=== PATIENT | female | born 1970 | race Caucasian/White ===

== ENCOUNTER → 2018-10-06 | Outpatient (CLI) | payer OTHER ==
--- NOTE | 2018-10-08 09:52 | MM ---
Reason for exam: screening (asymptomatic). Last mammogram was performed 11 years and 1 month ago. History: Patient is nulliparous. Lumpectomy of the right breast, 2004. Physical Findings: A clinical breast exam by your physician is recommended on an annual basis and results should be correlated with mammographic findings. MG Screening Mammo w CAD Bilateral CC and MLO view(s) were taken. Prior study comparison: August 25, 2007, bilateral screening mammogram w/CAD. There are scattered fibroglandular densities. Focal asymmetry subareolar right breast. Additional view recommended. ASSESSMENT: Incomplete: need additional imaging evaluation, BI-RAD 0 RECOMMENDATION: Special view mammogram of the right breast. If lesion persists on supplemental views, image directed ultrasound is recommended. [facility] will attempt to contact patient to return for supplemental views and ultrasound if indicated.
== END ==
LOC: RADMAMWWP 15:13
PROVIDERS: ATTEND Family Medicine
DX: Z12.31 Encounter for screening mammogram for malignant neoplasm of breast (principal)
CPT/HCPCS: 77067

== ENCOUNTER → 2018-10-22 | Outpatient (CLI) | payer OTHER ==
--- NOTE | 2018-10-22 10:12 | MM ---
Reason for exam: additional evaluation requested from abnormal screening. Last mammogram was performed 1 month ago. History: Patient is nulliparous. Benign excisional biopsy of the right breast, 2004. Physical Findings: Nurse did not find any significant physical abnormalities on exam. MG 3D Work Up W/Cad RT Spot compression CC, spot compression MLO, and LM view(s) were taken of the right breast. Prior study comparison: October 06, 2018, bilateral MG screening mammo w CAD. August 25, 2007, bilateral screening mammogram w/CAD. There are scattered fibroglandular densities. These results were verbally communicated with the patient and result sheet given to the patient on 10/22/18. ASSESSMENT: Probably benign, BI-RAD 3 RECOMMENDATION: Follow-up diagnostic mammogram of the right breast in 6 months.
== END | disposition home or self-care (01) ==
LOC: RADMAMWWP 08:58
PROVIDERS: ATTEND Family Medicine
DX: R92.8 Other abnormal and inconclusive findings on diagnostic imaging of breast (principal)
CPT/HCPCS: 77061; 77065

== ENCOUNTER → 2019-04-22 | Outpatient (CLI) | payer OTHER ==
--- NOTE | 2019-04-22 11:25 | MM ---
Reason for exam: follow-up at short interval from prior study. Last mammogram was performed 6 months ago. History: Patient is nulliparous. Benign excisional biopsy of the right breast, 2004. Physical Findings: Nurse did not find any significant physical abnormalities on exam. MG 3D Diag Mammo W/Cad RT CC and MLO view(s) were taken of the right breast. Prior study comparison: October 22, 2018, right breast MG 3d work up w/cad RT. October 06, 2018, bilateral MG screening mammo w CAD. There is no discrete abnormality. These results were verbally communicated with the patient and result sheet given to the patient on 04/22/19. ASSESSMENT: Benign, BI-RAD 2 RECOMMENDATION: Return to routine screening mammogram schedule for both breasts. Back on schedule.
== END | disposition home or self-care (01) ==
LOC: RADMAMWWP 10:17
PROVIDERS: ATTEND Family Medicine
DX: R92.8 Other abnormal and inconclusive findings on diagnostic imaging of breast (principal)
CPT/HCPCS: 77061; 77065

== ENCOUNTER 2021-06-25 08:45 | Emergency (ER) | payer OTHER ==
[2021-06-25 08:50] VITALS: RESP 18; TEMP 97.6
[2021-06-25] MEDS ORDERED: KETOROLAC 15 MG/ML 1 ML VIAL IM STA (09:08)
[2021-06-25] MEDS ORDERED: ORPHENADRINE 30 MG/ML 2 ML VIAL IM STA (09:08)
--- NOTE | 2021-06-25 09:46 | XR ---
Lumbar spine HISTORY: Pain 3 views of the lumbar spine, no comparisons There is a levoscoliosis centered at L2-3. There is rotatory component. Lumbar vertebral bodies show preserved height and bone mineralization. Sclerosis is present in the posterior elements of the lower lumbar spine. There is multilevel spondylosis. Some loss of disc height present at L5-S1, L2-3. IMPRESSION: Degenerative disc disease, scoliosis, facet arthropathy
--- NOTE | 2021-06-25 09:52 | ED ---
General Adult HPI - General Chief complaint: Back Pain/Injury Stated complaint: Back Pain/Injury Time Seen by Provider: 06/25/21 08:51 Source: patient Mode of arrival: wheelchair Limitations: no limitations - History of Present Illness Initial comments: 50-year-old female presents to the emergency room for a chief complaint of left back pain. Patient states she has back pain from time to time and usually sees a chiropractor every 2 weeks. Patient states week ago she started to have left lower back pain. Denies injury but states she works at [employer] and is on her feet a lot. Patient states the pain in her low back radiates down her left leg. Last night it was radiating to her foot. Patient states it worsens with movement such as going from sitting to standing. Patient denies bladder or bowel changes, saddle anesthesia, weakness of the legs, or fevers.Patient has no other complaints at this time including shortness of breath, chest pain, abdominal pain, nausea or vomiting, headache, or visual changes. - Related Data Home Medications Medication Instructions Recorded Confirmed Cyanocobalamin (Vitamin B-12) 5,000 mcg PO DAILY 06/25/21 06/25/21 [Vitamin B12] Loratadine [Claritin] 10 mg PO DAILY 06/25/21 06/25/21 Multivitamins, Thera [Multivitamin 1 tab PO DAILY 06/25/21 06/25/21 (formulary)] Vitamin D3 50,000iu 50,000 units PO MO 06/25/21 06/25/21 Previous Rx's Medication Instructions Recorded Cyclobenzaprine [Flexeril] 10 mg PO TID #14 tab 06/25/21 Lidocaine 5% Patch [Lidoderm 5% 1 patch TOPICAL DAILY PRN 20 Days 06/25/21 Patch] #20 patch predniSONE 50 mg PO DAILY #5 tablet 06/25/21 Allergies Allergy/AdvReac Type Severity Reaction Status Date / Time No Known Allergies Allergy Verified 06/25/21 10:03 Review of Systems ROS Statement: Those systems with pertinent positive or pertinent negative responses have been documented in the HPI. ROS Other: All systems not noted in ROS Statement are negative. Past Medical History Past Medical History: No Reported History History of Any Multi-Drug Resistant Organisms: None Reported Past Surgical History: Bariatric Surgery Additional Past Surgical History / Comment(s): rt breast lumpectomy, lip reconstructive Past Psychological History: No Psychological Hx Reported Smoking Status: Never smoker Past Alcohol Use History: None Reported Past Drug Use History: None Reported General Exam Limitations: no limitations General appearance: alert, in no apparent distress Head exam: Present: atraumatic Eye exam: Present: normal appearance, PERRL, EOMI. Absent: scleral icterus, conjunctival injection ENT exam: Present: normal exam, mucous membranes moist Neck exam: Present: normal inspection, full ROM. Absent: tenderness Respiratory exam: Present: normal lung sounds bilaterally. Absent: respiratory distress, wheezes Cardiovascular Exam: Present: regular rate, normal rhythm, normal heart sounds Extremities exam: Present: normal capillary refill (Capillary refill less than 2 seconds, DP pulse 2+ left lower extremity), other (Strength 5 out of 5 bilateral lower extremities) Back exam: Present: other (Left-sided lower paraspinal tenderness). Absent: CVA tenderness (R), CVA tenderness (L), vertebral tenderness Course Vital Signs 06/25/21 08:47 Temperature 97.6 F Pulse Rate 72 Respiratory 18 Rate Blood Pressure 141/65 O2 Sat by Pulse 98 Oximetry Medical Decision Making - Medical Decision Making Vitals are stable. HPI and physical exam as documented. Signs. X-ray shows degenerative disc disease, scoliosis, and facet arthropathy. Patient would likely benefit from an MRI and will be referred to orthopedics. In the meantime we did give her Toradol and Norflex which did improve her pain. We will send her home with Tylenol 3 to take as needed for breakthrough pain. Patient will otherwise take muscle relaxers steroids and use lidocaine patches. She will return here for any worsening symptoms. Disposition Clinical Impression: Mechanical back pain, Lumbar radiculopathy Disposition: HOME SELF-CARE Condition: Good Instructions (If sedation given, give patient instructions): Acute Low Back Pain (ED) Additional Instructions: Please take medications as directed. If pain is severe take Tylenol [address] operate machinery while taking this. Please follow-up with primary care and orthopedics. You would likely benefit from an MRI. Return to the emergency room for any worsening symptoms such as severely worsening pain, bladder or bowel changes, saddle anesthesia, weakness of the legs, or fevers. Prescriptions: Cyclobenzaprine [Flexeril] 10 mg PO TID #14 tab Lidocaine 5% Patch [Lidoderm 5% Patch] 1 patch TOPICAL DAILY PRN 20 Days #20 patch PRN Reason: Pain predniSONE 50 mg PO DAILY #5 tablet Is patient prescribed a controlled substance at d/c from ED?: No Referrals: Diane Roman MD [Primary Care Provider] - 1-2 days Job Boston MD [STAFF PHYSICIAN] - 1-2 days Time of Disposition: 10:11
[2021-06-25] MEDS ORDERED: ACET/COD 300 MG/30 MG STARTER PACK 6 TAB BTL PO STA (10:12)
[2021-06-25 10:51] VITALS: BP 149/98; PULSE 64
== END 2021-06-25 10:48 | disposition home or self-care (01) ==
LOC: EC 08:45
DX: M51.16 Intervertebral disc disorders with radiculopathy, lumbar region (principal)
CPT/HCPCS: 72100; 99283; 96372; J2360; J1885

== ENCOUNTER 2023-09-04 13:15 | Emergency (ER) | payer OTHER ==
[2023-09-04 13:27] VITALS: TEMP 98
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
[2023-09-04 15:03] VITALS: BP 137/88; PULSE 68; RESP 16
== END 2023-09-04 14:47 | disposition home or self-care (01) ==
LOC: EC 13:15
DX: M25.531 Pain in right wrist (principal); V89.2XXA Person injured in unspecified motor-vehicle accident, traffic, initial encounter; Y92.410 Unspecified street and highway as the place of occurrence of the external cause
CPT/HCPCS: 99284